=== PATIENT | male | born 1930 | race Caucasian/White ===

== ENCOUNTER 2016-06-18 18:51 | Inpatient (IN) | payer MEDICARE, OTHER ==
[~2016-06-18 18:51] MED LIST: ADVAIR 10028 BLISTER INH; ADVAIR 25028 BLISTER INH; ADVAIR HFA 230-28 GM IH; ALBUTEROL I0.5 ML/EA AERO NEB; AMIODARONE HCL400 MG PO; ARIXTRA2.5 MG/0.5 SQ; ASPIR 8181 MG; ASPIR-TRIN325 M1 PO; BROVANA15 MCG/2 M IH; BYSTOLIC2.5 MG PO; CHLORASEPTIC177 ML MM; COLACE100 MG PO; DIOVAN80 M PO; IMDUR60 MG; IMDUR60 MG PO; LASIX40 MG; LASIX40 MG PO; LASIX80 MG PO; LEVAQUIN750 MG PO; MIRALAX17 G1 PO; MUCINEX600 MG PO; NEXIUM20 MG; NEXIUM40 MG PO; NITROQUICK0.4 MG SL; OMNICEF300 MG PO; OXYGEN; PHENERGAN W/CO120 M1 PO; PLAVIX75 MG; PLAVIX75 MG PO; PREDNISONE10 MG PO; PRINIVIL5 MG PO; PROSCAR5 MG; PROSCAR5 MG PO; PULMICORT0.5 MG/2 M IH; RANEXA500 MG PO; SPIRIVA18 MCG; SPIRIVA18 MCG IH; SPIRONOLACTONE25 M1 PO; SPIRONOLACTONE25 MG; TOPROL XL25 MG; TRAZODONE50 MG; TUSSIONEX PO; TYLENOL325 M1 PO; ZITHROMAX1 G/PKT PO; ZOCOR20 MG PO; ZOCOR40 MG; ZOCOR40 MG PO; ZOLOFT50 MG PO; [UNRECOGNIZED DRUG - OTHER]
[2016-06-18] MEDS ORDERED: AMIODARONE HCL200 M1 PO (19:08)
[2016-06-18] MEDS ORDERED: LIPITOR10 M1 PO (19:10)
[2016-06-18] MEDS ORDERED: NEXIUM40 M1 PO (19:12)
[2016-06-18] MEDS ORDERED: PROSCAR5 M1 PO (19:12)
[2016-06-18] MEDS ORDERED: LASIX40 M1 PO (19:12)
[2016-06-18] MEDS ORDERED: MIDODRINE HCL5 M1 PO (19:13)
[2016-06-18] MEDS ORDERED: LISINOPRIL2.5 M1 PO (19:13)
[2016-06-18] MEDS ORDERED: ALDACTONE25 M1 PO (19:14)
[2016-06-18] MEDS ORDERED: RANEXA500 M1 PO (19:14)
[2016-06-18] MEDS ORDERED: PREDNISONE (19:14)
[2016-06-18] MEDS ORDERED: AREDS 2 (19:15)
[2016-06-18] MEDS ORDERED: FLOMAX0.4 M1 PO (19:15)
[2016-06-18] MEDS ORDERED: ADVAIR 25028 BLISTE1 PO (19:16)
[2016-06-18] MEDS ORDERED: SPIRIVA18 MC1 IH (19:16)
[2016-06-18] MEDS ORDERED: ASPIRIN81 M1 PO (19:17)
[2016-06-18] MEDS ORDERED: NITROSTAT0.4 MG/TAB SL (19:18)
[2016-06-19 06:08] LABS: BASO % 0.2 % (0-2); EOS % 2.3 % (0-7); EOSINOPHIL ABSOLUTE COUNT 0.1 tho/cmm (0.0-0.7); HCT-HEMATOCRIT 29.6 % (36.0-53.5); HGB-HEMOGLOBIN 9.8 gm/dl (13.5-17.0); IMMATURE GRANULOCYTES ABSOLUTE 0.01 tho/cmm (0-0.03); IMMATURE GRANULOCYTES PERCENT 0.2 % (0-0.3); LYMPH % 15.1 % (20-45); LYMPH ABSOLUTE COUNT 0.7 tho/cmm (0.8-4.5); MCH (MEAN CORPUSCULAR HGB) 32.6 pg (28.0-32.0); MCHC MEAN CORPUSCULAR HGB CONC 33.1 % (32.0-36.0); MCV (MEAN CELL VOLUME) 98.3 fl (82.0-96.0); MEAN PLATELET VOLUME 10.1 cmc (9.4-12.4); MONOCYTE ABSOLUTE COUNT 0.5 tho/cmm (0.0-1.2); NEUTROPHIL ABSOLUTE COUNT 3.4 tho/cmm (1.6-8.0); NEUTROPHIL-AUTOMATED 3.4 tho/cmm (1.6-8.0); NEUTROPHILS % 72.2 % (40-80); PLATELET COUNT 119 tho/cmm (150-450); RED BLOOD COUNT 3.01 mil/cmm (4.40-5.70); RED CELL DISTRIBUTION WIDTH 13.9 % (12.4-16.4); WHITE BLOOD COUNT 4.7 tho/cmm (4.0-10.0)
[2016-06-19 06:43] LABS: ALB/GLOB RATIO 0.9 (0.8-2.0); ALBUMIN 2.8 g/dl (3.5-5.0); ALKALINE PHOSPHATASE 57 U/L (33-138); ALT/SGPT 52 U/L (12-78); ANION GAP 12 mmol/L (0-20); AST/SGOT 51 U/L (10-40); BILIRUBIN,TOTAL 0.8 mg/dl (0.0-1.5); BLOOD UREA NITROGEN 23 mg/dl (6-24); CALCIUM 7.9 mg/dl (8.5-10.5); CARBON DIOXIDE-VENOUS 28 mmol/L (22-32); CHLORIDE 106 mmol/l (96-110); CREATININE 1.18 mg/dl (0.60-1.30); GLUCOSE 79 mg/dL (70-110); MAGNESIUM 2.2 mg/dl (1.3-2.6); POTASSIUM 4.3 mmol/L (3.7-5.1); SODIUM 142 mmol/L (135-145); eGFR VALUE FOR BLACK 64 mL/Min
[2016-06-20 15:02] LABS: BASO % 0.2 % (0-2); EOS % 1.1 % (0-7); EOSINOPHIL ABSOLUTE COUNT 0.1 tho/cmm (0.0-0.7); HCT-HEMATOCRIT 30.1 % (36.0-53.5); HGB-HEMOGLOBIN 9.6 gm/dl (13.5-17.0); IMMATURE GRANULOCYTES ABSOLUTE 0.01 tho/cmm (0-0.03); IMMATURE GRANULOCYTES PERCENT 0.2 % (0-0.3); LYMPH % 20.4 % (20-45); LYMPH ABSOLUTE COUNT 0.9 tho/cmm (0.8-4.5); MCH (MEAN CORPUSCULAR HGB) 31.8 pg (28.0-32.0); MCHC MEAN CORPUSCULAR HGB CONC 31.9 % (32.0-36.0); MCV (MEAN CELL VOLUME) 99.7 fl (82.0-96.0); MEAN PLATELET VOLUME 10.3 cmc (9.4-12.4); MONO % 9.8 % (0-12); MONOCYTE ABSOLUTE COUNT 0.4 tho/cmm (0.0-1.2); NEUTROPHIL ABSOLUTE COUNT 3.1 tho/cmm (1.6-8.0); NEUTROPHIL-AUTOMATED 3.1 tho/cmm (1.6-8.0); NEUTROPHILS % 68.3 % (40-80); PLATELET COUNT 109 tho/cmm (150-450); RED BLOOD COUNT 3.02 mil/cmm (4.40-5.70); RED CELL DISTRIBUTION WIDTH 13.8 % (12.4-16.4); WHITE BLOOD COUNT 4.5 tho/cmm (4.0-10.0)
[2016-06-20 15:13] LABS: ANION GAP 12 mmol/L (0-20); BLOOD UREA NITROGEN 25 mg/dl (6-24); CALCIUM 7.5 mg/dl (8.5-10.5); CARBON DIOXIDE-VENOUS 29 mmol/L (22-32); CHLORIDE 102 mmol/l (96-110); GLUCOSE 97 mg/dL (70-110); POTASSIUM 3.8 mmol/L (3.7-5.1); SODIUM 139 mmol/L (135-145); eGFR VALUE FOR BLACK 57 mL/Min
[2016-06-22 06:53] LABS: ANION GAP 13 mmol/L (0-20); BLOOD UREA NITROGEN 29 mg/dl (6-24); CALCIUM 7.8 mg/dl (8.5-10.5); CARBON DIOXIDE-VENOUS 29 mmol/L (22-32); CHLORIDE 100 mmol/l (96-110); CREATININE 1.17 mg/dl (0.60-1.30); POTASSIUM 3.9 mmol/L (3.7-5.1); SODIUM 138 mmol/L (135-145); eGFR VALUE FOR BLACK 65 mL/Min
[2016-06-22 06:56] LABS: GLUCOSE 149 mg/dL (70-110)
== END 2016-06-23 15:15 | disposition swing bed (61) | DRG 444 ==
LOC: 5WD 18:51
PROVIDERS: Hospitalist; Internal Medicine; ADMIT Internal Medicine
PROC: 3E0F7GC Introduction of Other Therapeutic Substance into Respiratory Tract, Via Natural or Artificial Opening (ICD-10-PCS; 2016-06-18)
PROC: 0DB68ZX Excision of Stomach, Via Natural or Artificial Opening Endoscopic, Diagnostic (ICD-10-PCS; principal; 2016-06-19)
PROC: 0DB98ZX Excision of Duodenum, Via Natural or Artificial Opening Endoscopic, Diagnostic (ICD-10-PCS; principal; 2016-06-19)
PROC: 0D758ZZ Dilation of Esophagus, Via Natural or Artificial Opening Endoscopic (ICD-10-PCS; principal; 2016-06-19)
PROC: 05HF33Z Insertion of Infusion Device into Left Cephalic Vein, Percutaneous Approach (ICD-10-PCS; 2016-06-20)
PROC: B54NZZA Ultrasonography of Left Upper Extremity Veins, Guidance (ICD-10-PCS; 2016-06-20)
DX: K80.50 Calculus of bile duct without cholangitis or cholecystitis without obstruction (principal); J11.00 Influenza due to unidentified influenza virus with unspecified type of pneumonia; J96.01 Acute respiratory failure with hypoxia; N17.9 Acute kidney failure, unspecified; I13.0 Hypertensive heart and chronic kidney disease with heart failure and stage 1 through stage 4 chronic kidney disease, or unspecified chronic kidney disease; D69.6 Thrombocytopenia, unspecified; J18.9 Pneumonia, unspecified organism; G47.34 Idiopathic sleep related nonobstructive alveolar hypoventilation; I50.9 Heart failure, unspecified; R13.10 Dysphagia, unspecified; J44.1 Chronic obstructive pulmonary disease with (acute) exacerbation; D53.9 Nutritional anemia, unspecified; E78.5 Hyperlipidemia, unspecified; G47.33 Obstructive sleep apnea (adult) (pediatric); I25.10 Atherosclerotic heart disease of native coronary artery without angina pectoris; I25.5 Ischemic cardiomyopathy; I34.0 Nonrheumatic mitral (valve) insufficiency; I35.0 Nonrheumatic aortic (valve) stenosis; I48.91 Unspecified atrial fibrillation; K21.9 Gastro-esophageal reflux disease without esophagitis; K57.30 Diverticulosis of large intestine without perforation or abscess without bleeding; N18.9 Chronic kidney disease, unspecified; N26.1 Atrophy of kidney (terminal); N40.0 Benign prostatic hyperplasia without lower urinary tract symptoms; Z79.01 Long term (current) use of anticoagulants; Z86.39 Personal history of other endocrine, nutritional and metabolic disease; Z86.79 Personal history of other diseases of the circulatory system; Z87.11 Personal history of peptic ulcer disease; Z95.0 Presence of cardiac pacemaker; Z95.1 Presence of aortocoronary bypass graft; Z23 Encounter for immunization
CPT/HCPCS: A9537; C1751; C1769; C9113; G0008; G0500; G8978-GP-CJ; G8979-GP-CI; J0456; J2250; J2405; J2543; J2920; J2930; J3010; J7030; J7050; J7512